=== PATIENT | male | born 1970 | race American Indian/Alaskan Native ===

== ENCOUNTER → 2024-11-25 | Outpatient (CLI) | payer BC, OTHER, SELFPAY ==
--- NOTE | 2024-11-25 | XR_ITS ---
Examination: Duplex scan of the lower extremity, unilateral right Date and time of exam: November 25, 2024, 11:44 AM INDICATIONS: Redness swelling and pain and burning sensation in the leg after injury to leg 8 days ago. Technique: Duplex scan of the extremity veins using B-mode/grayscale imaging and Doppler spectral analysis and color flow Attention is directed to internal echogenicity, compression and augmentation involving these veins, color flow assessment, spectral analysis Findings: Major deep venous structures in the extremity demonstrate normal course and caliber. There is no evidence of deep vein thrombosis. Normal color flow and spectral analysis Impression: Negative for DVT..
== END | disposition home or self-care (01) ==
PROVIDERS: PCP Nurse Practitioner Family; Referring Provider Nurse Practitioner Family; Visit Provider Nurse Practitioner Family
DX: M79.89 Other specified soft tissue disorders (principal); S81.801D Unspecified open wound, right lower leg, subsequent encounter; X58.XXXD Exposure to other specified factors, subsequent encounter
CPT/HCPCS: 93971

== ENCOUNTER → 2024-11-26 | Outpatient (CLI) | payer BC, OTHER, SELFPAY ==
--- NOTE | 2024-11-26 | XR_ITS ---
Examination: Ultrasound soft tissue extremity right lower leg Technique: Grayscale sonographic images soft tissue lower extremity right lower leg Indications: Nonhealing wound lower leg noticed beginning 9 days ago. Findings: Soft tissues cystic mass with internal echo is 3.5 x 1.2 x 2.9 cm at the area concern More solid masslike area also in this region 5.3 x 1.7 x 7.2 cm Diffuse edema Impression: Suspicious for soft tissue abscess in the lower leg anteriorly at the area concern 3.5 x 1.2 x 2.9 cm Consider MRI lower leg without contrast follow-up
== END | disposition home or self-care (01) ==
PROVIDERS: PCP Nurse Practitioner Family; Referring Provider Nurse Practitioner Family; Visit Provider Nurse Practitioner Family
DX: M79.89 Other specified soft tissue disorders (principal); S80.819A Abrasion, unspecified lower leg, initial encounter; X58.XXXA Exposure to other specified factors, initial encounter
CPT/HCPCS: 76705